=== PATIENT | male | born 1980 | race Native Hawaiian/Other Pacific Islander ===

== ENCOUNTER 2016-08-03 08:03 | Outpatient (CLI) | payer OTHER | END 2016-08-03 19:40 | disposition home or self-care (01) | LOC: CT 08:03 | DX: R31.21 Asymptomatic microscopic hematuria (principal) ==

== ENCOUNTER 2016-09-12 06:28 | Observation (INO) | payer OTHER ==
[~2016-09-12] VITALS: Ht 182.9 cm; Wt 111.7 kg
[2016-09-12 06:39] VITALS: BP 161/91; TEMP 98.1
[2016-09-12 07:55] LABS: PLATELET COUNT 331 K/uL (142-355)
[2016-09-12 08:00] LABS: POTASSIUM 3.8 mmol/L (3.6-5.2); SODIUM 136 mmol/L (136-145)
[2016-09-12 14:06] VITALS: BP 138/79; TEMP 98; Ht 182.9 cm; Wt 111.7 kg
--- NOTE | 2016-09-12 15:14 | NUR ---
1500 PT VOIDED 300ML OF YELLOW URINE. URINE STRAINED AT THIS TIME. TINY PIECE OF DEBRI NOTED IN STRAINER. UNABLE TO OBTAIN SPECIMEN FOR LAB TOO SMALL TO COLLECT.
[2016-09-12 16:00] VITALS: BP 102/43; TEMP 97.9
[2016-09-12 20:00] VITALS: BP 133/80; TEMP 98.3
[2016-09-13] VITALS: BP 126/78; TEMP 97.8
[2016-09-13 04:00] VITALS: BP 120/81; TEMP 97
[2016-09-13 08:00] VITALS: BP 124/69; TEMP 97.8
[2016-09-13 10:34] LABS: PLATELET COUNT 263 K/uL (142-355)
[2016-09-13 10:57] LABS: POTASSIUM 3.9 mmol/L (3.6-5.2)
[2016-09-13 11:57] VITALS: BP 139/85; TEMP 97.8
[2016-09-13 15:51] VITALS: BP 134/82; TEMP 97.7
[2016-09-13 20:00] VITALS: BP 128/73; TEMP 98
[2016-09-14 00:03] VITALS: BP 117/74; TEMP 97.9
[2016-09-14 04:00] VITALS: BP 111/66; TEMP 97.6
[2016-09-14 06:22] LABS: PLATELET COUNT 246 K/uL (142-355)
[2016-09-14 06:29] LABS: POTASSIUM 4.3 mmol/L (3.6-5.2)
[2016-09-14 08:00] VITALS: BP 129/79; TEMP 97.9
--- NOTE | 2016-09-14 09:01 | NUR ---
DC INSTRUCTIONS GIVEN TO PT AND . INSTRUCTED PT TO REMAIN NPO UNTIL AFTER APPT WITH DR MELÉNDEZ. PT TO FOLLOW UP WITH DR MELÉNDEZ IN [place] TODAY AT 1245. PT VERBALIZED UNDERSTANDING. IV DC'D WITH CANNULA INTACT AND SITE CARE PROVIDED. PT LEFT AMBULATORY REQUESTED. RX GIVEN TO PT. NAD NOTED.
== END 2016-09-14 09:06 | disposition home or self-care (01) ==
LOC: ED 06:28 → MED/SURG 08:50
PROVIDERS: Specialist; Student in an Organized Health Care Education/Training Program
DX: N13.2 Hydronephrosis with renal and ureteral calculous obstruction (principal)
CPT/HCPCS: 36415; 80053; 81000; 85027; 96361; 96365; 96366; 96372; 96374; 96375; 99220; 99284; G0378; J1644; J1885; J2175; J2405; J2550

== ENCOUNTER 2018-07-21 09:38 | Outpatient (CLI) | payer BC | END 2018-07-21 20:30 | disposition home or self-care (01) | LOC: RAD 09:38 | DX: R07.89 Other chest pain (principal); R05 Cough ==

== ENCOUNTER 2018-09-26 08:51 | Outpatient (CLI) | payer BC | END 2018-09-26 23:21 | disposition home or self-care (01) | LOC: MRI 08:51 | DX: M53.82 Other specified dorsopathies, cervical region (principal); M54.2 Cervicalgia; M79.12 Myalgia of auxiliary muscles, head and neck | CPT/HCPCS: A9576 ==

== ENCOUNTER 2018-11-06 20:32 | Emergency (ER) | payer BC ==
[~2018-11-06] VITALS: Ht 185.4 cm; Wt 108.4 kg
[2018-11-06 21:13] LABS: PLATELET COUNT 353 K/uL (142-355)
[2018-11-06 21:31] LABS: PARTIAL THROMBOPLASTIN TIME 22.7 SECONDS (24.5-33.6)
[2018-11-06 22:05] VITALS: BP 167/92; TEMP 98.2
== END 2018-11-06 22:05 | disposition home or self-care (01) ==
LOC: ED 20:32
PROVIDERS: Hospitalist
DX: T63.461A Toxic effect of venom of wasps, accidental (unintentional), initial encounter (principal)
CPT/HCPCS: 80053; 85027; 85610; 85730; 94664; 96360; 96375; 99284; J2930